=== PATIENT | male | born 1950 | race Caucasian/White ===

== ENCOUNTER → 2017-06-12 | Outpatient (CLI) | payer OTHER ==
[~2017-06-12] MED LIST: AMLODIPINE BESY10 MG PO; DEXILANT60 MG PO; IBUPROFEN 200200 M1 PO
== END ==
LOC: MRI 07:15
DX: M51.37 Other intervertebral disc degeneration, lumbosacral region (principal)

== ENCOUNTER → 2017-06-18 | Outpatient (CLI) | payer OTHER ==
[~2017-06-18] VITALS: Ht 172.7 cm; Wt 64.0 kg
[~2017-06-18] MED LIST changes: +LYRICA 50 MG50 MG PO; +TESSALON PERLE100 MG PO
--- NOTE | ~2017-06-18 | HPC ---
[facility] [address] [place] [address] PAIN MANAGEMENT CONSULTATION Name: ROCKY [facility]ORREZ [id number] Ad[facility]: 06/18/17 Attend Phys: Clyde Reeder DO Discharge: Date of : 48 Report #: [id number] THIS REPORT FOR: //name// CC: Clyde Connelly MD DATE OF SERVICE: 06/18/2017 REFERRING PHYSICIAN: Jayesh Connelly M.D. CHIEF COMPLAINT: Low back pain, left lower extremity pain with paresthesias. HISTORY OF PRESENT ILLNESS: As you know, the patient is a 66-year-old male who reports now pain score of 8/10, states pain is constant and sharp in sensation, exacerbated with activities; improves with repositioning, heat and cold compresses, acetaminophen and ibuprofen. He indicates pain begins in low back, radiates down the left leg into the foot with the second, third, fourth and fifth digits on the foot numbness and tingling as well as the bottom of the foot. He returns to discuss treatment options and to review his recent MRI. He had an MRI obtained on 06/12/2017 per our request. ALLERGIES: No known drug allergies. CURRENT MEDICATIONS: Ibuprofen, Dexilant, amlodipine and Lyrica. SOCIAL HISTORY: The patient smokes 1 pack tobacco per day. He has done so for 50 years. Denies IV or illicit drug use. Admits to 6 alcoholic beverages per day. 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 He is unaccompanied today. IMAGING DATA: MRI lumbar spine obtained on 06/12/2017 shows T12-L1, L1-L2, L2-L3 and L3-L4 unremarkable and L4-L5 minimal posterior disk bulge and mild bilateral facet arthrosis. No significant central canal or neural foraminal stenosis. Tiny annular tear at L5-S1. There is mild diffuse disk bulge, superimposed left paracentral disk protrusion which migrated caudally from the disk space approximately 10 mm. There is effacement of the descending left S1 nerve root, correlating to a left S1 radiculopathy. PHYSICAL EXAMINATION: VITAL SIGNS: Blood pressure 142/75, pulse 74, respiratory rate 14 and unlabored. The patient is 100% on room air. Height 5 feet 8 inches tall, weight 141.2 pounds and BMI calculated 21.5. GENERAL: Well-developed, well-nourished and well-hydrated 66-year-old male. He appears his stated age. He is in no acute distress, awake, alert and oriented x 3. Current pain score is rated at 8/10. HEENT: Normocephalic and atraumatic. Pupils equal, round and reactive to [facility] [address] [place] [address] PAIN MANAGEMENT CONSULTATION Name: ROCKY TORREZ Room #: REG ANANT [facility]ar#: [id number] Admission: 06/18/17 Attend Phys: Clyde Reeder DO Discharge: Date of : 48 Report #: [id number] light. Extraocular muscles are intact. Sclerae nonicteric without injection. NEUROLOGICAL: Cranial nerves 2 through 12 grossly intact. EXTREMITIES: Show no clubbing, no cyanosis and no edema. MUSCULOSKELETAL: Seated straight leg raising is positive left, supine straight leg raising positive left. Afua's test negative. Modified Gaenslen's positive for axial back pain. Gait is antalgic favoring left lower extremity over right. Muscle bulk and tone equal and symmetrical. ASSESSMENT: 1. Symptomatic lumbar radiculopathy. 2. Displacement of lumbar intervertebral disk with radiculopathy. 3. Foraminal stenosis of the lumbar spine. 4. Chronic intractable pain. PLAN: 1. The patient returns today in followup visit where we have reviewed his recent MRI. Unfortunately, the patient does have fairly significant changes at the L5-S1 causing mass effect upon the left S1 nerve root, which does correspond the patient's typical pain distribution. We discussed with the patient the findings on the MRI and how they correlate to his symptoms specifically. After discussion of the MRI, we then began to discuss treatment options that might be useful in treating his symptoms. The patient and I discussed treatment options, which would include physical therapy, stretching exercises, core strengthening. We discussed medication management with neuropathic pain medication such as the Lyrica. We have already initiated the patient on. We also discussed epidural injections under fluoroscopic guidance, spinal cord stimulator therapy and ultimately surgical options. After reviewing the risks and benefits of all proposed treatment options, the patient chose to begin with continuation of medications. 2. The patient will continue Lyrica. He is going to escalate his dose from the 100 mg at night to 50 mg morning, 100 mg at night for the next 7 nights, then increase to 100 mg twice a day. He is going to consider possibility of undergoing an epidural injection. He does wish to discuss this with his primary care physician. 3. The patient and I did discuss the possible necessity of undergoing surgery at this time, the patient indicates he cannot undergo surgery due to having to take care of his as he is the sole provider of care. He will consider his options and determine if surgical direction in which he wishes to head. If this is the case, we will then provide the patient with a referral to neurosurgery. At this point, the patient wishes to remain conservative with treatment. 4. We will see the patient back in followup visit on an as needed basis. He [facility] [address] [place] [address] PAIN MANAGEMENT CONSULTATION Name: ROCKY TORREZ Room #: REG ANANT T[facility]ar#: [id number] Admission: 06/18/17 Attend Phys: Clyde Reeder DO Discharge: Date of : 48 Report #: [id number] has medication available and he is going to discuss his case further with Dr. Connelly. <ELECTRONICALLY SIGNED> By: Clyde Reeder DO 07/03/17 1214 1007 1150 Clyde Reeder DO /nt
[2017-06-18 11:22] VITALS: BP 142/75
== END ==
LOC: PAIN 06:56
DX: M48.061 Spinal stenosis, lumbar region without neurogenic claudication (principal); G89.29 Other chronic pain; M51.16 Intervertebral disc disorders with radiculopathy, lumbar region; Z87.891 Personal history of nicotine dependence

== ENCOUNTER 2017-07-18 16:20 | Emergency (ER) | payer OTHER ==
[~2017-07-18] VITALS: Ht 172.7 cm; Wt 61.2 kg
--- NOTE | ~2017-07-18 | EKG ---
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
[~2017-07-18 16:20] MED LIST changes: -TESSALON PERLE100 MG PO
[2017-07-18 18:56] LABS: ABSOLUTE NEUTROPHILS 7.9 thou/uL (1.4-8.2); BASOPHILS 1.1 % (0.0-2.0); EOSINOPHILS 3.6 % (0.0-3.0); HEMATOCRIT 39.6 % (42.0-52.0); HEMOGLOBIN 14.2 gm/dL (14.0-18.0); LYMPHOCYTES 12.8 % (24.0-44.0); MCH 31.8 pg (26.0-34.0); MCHC 35.8 g/dL (28.0-37.0); MCV 88.7 fL (80.0-100.0); MONOCYTES 10.5 % (1.0-8.0); PLATELET COUNT 430 thou/uL (150-400); RBC 4.46 mil/uL (4.50-6.00); RDW 13.4 % (10.5-14.5)
[2017-07-18 19:04] LABS: ANION GAP 9 mmol/L (7-16); BUN 11 mg/dL (7-18); CALCIUM 8.8 mg/dL (8.5-10.1); CHLORIDE 101 mmol/L (98-107); CO2 26 mmol/L (21-32); CREATININE 1.1 mg/dL (0.7-1.3); GLUCOSE 105 mg/dL (74-106); POTASSIUM 3.7 mmol/L (3.5-5.1); SODIUM 136 mmol/L (136-145)
[2017-07-18 19:12] LABS: ALBUMIN 3.7 g/dL (3.4-5.0); SGOT 28 U/L (15-37); SGPT 38 U/L (30-65); TOTAL BILIRUBIN 0.4 mg/dL (<0.1-1.0); TOTAL PROTEIN 7.5 g/dL (6.4-8.2); TROPONIN-I < 0.04 ng/mL (<0.06)
[2017-07-18] MEDS ORDERED: TESSALON PERLE100 MG PO (19:41)
[2017-07-18 19:59] VITALS: BP 142/76
== END 2017-07-18 20:00 | disposition home or self-care (01) ==
LOC: ER 16:20
PROVIDERS: Physician Assistant
DX: R05 Cough (principal); R60.0 Localized edema; I10 Essential (primary) hypertension; F17.210 Nicotine dependence, cigarettes, uncomplicated; Z90.49 Acquired absence of other specified parts of digestive tract

== ENCOUNTER → 2017-07-23 | Outpatient (CLI) | payer OTHER ==
[~2017-07-23] VITALS: Ht 172.7 cm; Wt 65.0 kg
[~2017-07-23] MED LIST changes: +TESSALON PERLE100 MG PO
--- NOTE | ~2017-07-23 | HPC ---
[facility] [address] [place] [address] PAIN MANAGEMENT CONSULTATION Name: ROCKY TORREZ [id number] Admission: 07/23/17 Attend Phys: Clyde Reeder DO Discharge: Date of : 48 Report #: [id number] THIS REPORT FOR: //name// CC: Clyde Connelly DATE OF SERVICE: 07/23/2017 CHIEF COMPLAINT: Low back pain, left lower extremity pain and paresthesias. HISTORY OF PRESENT ILLNESS: As you know, the patient is a 66-year-old male who returns today in followup visit with reporting pain score of around 0/10. He states pain is constant and sharp when present. He states pain begins in low back, radiates down the leg. He states he is now feeling no sensation in the left lower extremity, "my foot is ." The patient is undergoing surgery with Dr. Gatica on August 15 to address low back issues. He returns today in followup visit to continue Lyrica samples up until the time he undergo surgery with the plan to come off these medications directly after surgery has been completed. He returns today requesting samples of the Lyrica to be provided for the next couple of weeks as he prepares for surgery. ALLERGIES: No known drug allergies. CURRENT MEDICATIONS: Ibuprofen is excellent, amlodipine and Lyrica. SOCIAL HISTORY: The patient continues to smoke 1 pack tobacco per day and he has done so for 50+ years. Denies IV or illicit drug use. Admits to 6 alcoholic beverages per day. 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 IMAGING DATA: No new imaging available. PHYSICAL EXAMINATION: VITAL SIGNS: Blood pressure 139/67, pulse is 70 and respiratory rate 20 and unlabored. The patient is 97% on room air, height 5 feet 8 inches tall, weight 143.2 pounds and BMI calculated 21.8. GENERAL: Well-developed, well-nourished and well-hydrated 66-year-old male, smell strongly of tobacco smoke, placing current pain score currently 0/10. HEENT: Normocephalic and atraumatic. Pupils equal, round and reactive to light. EXTREMITIES: Show no clubbing, no cyanosis and no edema. MUSCULOSKELETAL: Seated straight leg raising positive on the left. Supine straight leg raising positive on the left. Afua's test negative. Modified Gaenslen's positive for axial low back pain. Gait is antalgic favoring left lower extremity over right. [facility] [address] [place] [address] PAIN MANAGEMENT CONSULTATION Name: ROCKY TORREZ Room #: REG [facility]#: [id number] Admission: 07/23/17 Attend Phys: Clyde Reeder DO Discharge: Date of : 48 Report #: [id number] ASSESSMENT: 1. Symptomatic lumbar radiculopathy. 2. Displacement of lumbar intervertebral disk with radiculopathy. 3. Degeneration of lumbar spine. 4. Foraminal stenosis of the lumbar spine. 5. Chronic intractable pain. PLAN: 1. The patient returns today in followup visit for refills of his Lyrica therapy. The patient indicates that he is planning to undergo surgery on 08/15/[address] Gatica. The patient is hopeful this will improve his symptoms. He has requested that we provide Lyrica samples until which time he reaches the surgical time and then can be weaned off this medication post-procedurally. He returns today requesting the refills of samples to be provided today. 2. The patient was provided a sample pack of Lyrica. He is to continue the 50 mg in the morning and 100 mg at night. He was given samples to make the August 15 surgical deadline. 3. We wish to thank the referring physician, Dr. Connelly for the opportunity to see this patient in consultation. He is to follow with Dr. Gatica on until released from his care. He should be off his Lyrica by that time and can return to his PCP for continued therapy. Again, we wish to thank you for the opportunity to see the patient in consultation. <ELECTRONICALLY SIGNED> By: Clyde Reeder DO 08/06/17 0906 [id number] [id number] Clyde Reeder DO /nt
[2017-07-23 10:26] VITALS: BP 139/67
== END ==
LOC: PAIN 06:49
DX: M48.061 Spinal stenosis, lumbar region without neurogenic claudication (principal); M51.16 Intervertebral disc disorders with radiculopathy, lumbar region; M47.896 Other spondylosis, lumbar region; G89.29 Other chronic pain

== ENCOUNTER → 2019-11-05 | Outpatient (CLI) | payer OTHER | LOC: RAD 10:38 | DX: J43.9 Emphysema, unspecified (principal); J98.4 Other disorders of lung ==

== ENCOUNTER → 2019-11-09 | Outpatient (CLI) | payer OTHER | LOC: SJCVC 09:50 → SJCVCIMAG 09:50 | DX: I07.1 Rheumatic tricuspid insufficiency (principal); R07.9 Chest pain, unspecified; R06.09 Other forms of dyspnea; I10 Essential (primary) hypertension; R60.9 Edema, unspecified; F17.210 Nicotine dependence, cigarettes, uncomplicated ==

== ENCOUNTER → 2020-03-02 | Outpatient (CLI) | payer OTHER | LOC: CAT 07:43 | PROVIDERS: ATTEND Pediatrics | DX: J43.1 Panlobular emphysema (principal); I25.10 Atherosclerotic heart disease of native coronary artery without angina pectoris ==

== ENCOUNTER 2020-06-01 14:58 | Emergency (ER) | payer OTHER ==
[~2020-06-01] VITALS: Ht 172.7 cm; Wt 56.7 kg
[2020-06-01 15:19] VITALS: BP 146/75
== END 2020-06-01 19:56 | disposition home or self-care (01) ==
LOC: ER 14:58
DX: M54.16 Radiculopathy, lumbar region (principal); M54.2 Cervicalgia; M79.605 Pain in left leg; I10 Essential (primary) hypertension; F17.210 Nicotine dependence, cigarettes, uncomplicated; Z90.49 Acquired absence of other specified parts of digestive tract; Z79.899 Other long term (current) drug therapy; V89.2XXA Person injured in unspecified motor-vehicle accident, traffic, initial encounter; Y93.I9 Activity, other involving external motion; Y92.488 Other paved roadways as the place of occurrence of the external cause; Y99.8 Other external cause status

== ENCOUNTER → 2020-08-15 | Outpatient (CLI) | payer OTHER ==
[~2020-08-15] MED LIST changes: +ANORO ELLIPTA1 EACH INH; +COLACE100 MG PO; +IPRAT-ALBUT 0.5-3 ML INH; +MIRALAX17 GM PO; +NEURONTIN 300M300 M2 PO; +OXYGEN MISCELL; +PULMICORT0.5 MG/22 INH; +TRAZODONE HCL50 MG PO; +VENTOLIN HFA 1818 GM INH
[2020-08-15 11:25] LABS: HEMATOCRIT 40.7 % (42.0-52.0); HEMOGLOBIN 13.7 gm/dL (14.0-18.0); MCH 29.8 pg (26.0-34.0); MCHC 33.8 g/dL (28.0-37.0); MCV 88.3 fL (80.0-100.0); RBC 4.6 mil/uL (4.50-6.00); RDW 15.3 % (10.5-14.5); WBC 9.9 thou/uL (4.0-11.0)
[2020-08-15 11:28] LABS: URINE BILIRUBIN NEGATIVE (Negative); URINE BLOOD NEGATIVE (Negative); URINE CLARITY CLEAR; URINE COLOR YELLOW; URINE GLUCOSE-RANDOM* NEGATIVE (Negative); URINE KETONES NEGATIVE (Negative); URINE LEUKOCYTES-REFLEX NEGATIVE (Negative); URINE NITRITE-REFLEX NEGATIVE (Negative); URINE PROTEIN (DIPSTICK) NEGATIVE (Negative); URINE SPECIFIC GRAVITY 1.015 (1.005-1.035); URINE UROBILINOGEN 0.2 E.U./dl (0.2-1.0)
[2020-08-15 11:39] LABS: ALBUMIN 3.8 g/dL (3.4-5.0); APTT 25.9 Seconds (24.5-32.8); CALCIUM 8.6 mg/dL (8.5-10.1); CREATININE 1.1 mg/dL (0.7-1.3); POTASSIUM 3.8 mmol/L (3.5-5.1); PROTIME 10.2 Seconds (9.3-11.4); TOTAL BILIRUBIN 0.3 mg/dL (0.2-1.0); TOTAL PROTEIN 6.6 g/dL (6.4-8.2)
== END ==
LOC: LAB 09:00
PROVIDERS: Specialist; ATTEND Family Medicine
DX: Z01.818 Encounter for other preprocedural examination (principal)

== ENCOUNTER → 2020-08-17 | Outpatient (CLI) | payer OTHER ==
[~2020-08-17] MED LIST changes: -COLACE100 MG PO; -IPRAT-ALBUT 0.5-3 ML INH; -MIRALAX17 GM PO; -OXYGEN MISCELL; -PULMICORT0.5 MG/22 INH
== END ==
LOC: LAB 08:01
PROVIDERS: ATTEND Specialist
DX: Z01.812 Encounter for preprocedural laboratory examination (principal); Z20.822 Contact with and (suspected) exposure to COVID-19

== ENCOUNTER 2020-08-22 06:11 | Observation (INO) | payer OTHER ==
[2020-08-15 11:25] LABS: HEMATOCRIT 40.7 % (42.0-52.0); HEMOGLOBIN 13.7 gm/dL (14.0-18.0); MCH 29.8 pg (26.0-34.0); MCHC 33.8 g/dL (28.0-37.0); MCV 88.3 fL (80.0-100.0); RBC 4.6 mil/uL (4.50-6.00); RDW 15.3 % (10.5-14.5); WBC 9.9 thou/uL (4.0-11.0)
[2020-08-15 11:28] LABS: URINE BILIRUBIN NEGATIVE (Negative); URINE BLOOD NEGATIVE (Negative); URINE CLARITY CLEAR; URINE COLOR YELLOW; URINE GLUCOSE-RANDOM* NEGATIVE (Negative); URINE KETONES NEGATIVE (Negative); URINE LEUKOCYTES-REFLEX NEGATIVE (Negative); URINE NITRITE-REFLEX NEGATIVE (Negative); URINE PROTEIN (DIPSTICK) NEGATIVE (Negative); URINE SPECIFIC GRAVITY 1.015 (1.005-1.035); URINE UROBILINOGEN 0.2 E.U./dl (0.2-1.0)
[2020-08-15 11:39] LABS: ALBUMIN 3.8 g/dL (3.4-5.0); APTT 25.9 Seconds (24.5-32.8); CALCIUM 8.6 mg/dL (8.5-10.1); CREATININE 1.1 mg/dL (0.7-1.3); POTASSIUM 3.8 mmol/L (3.5-5.1); PROTIME 10.2 Seconds (9.3-11.4); TOTAL BILIRUBIN 0.3 mg/dL (0.2-1.0); TOTAL PROTEIN 6.6 g/dL (6.4-8.2)
[~2020-08-22] VITALS: Ht 172.7 cm; Wt 58.5 kg
[2020-08-22 07:48] VITALS: BP 147/70
[2020-08-22 11:00] VITALS: BP 110/81
--- NOTE | 2020-08-22 11:36 | NUR ---
ASSUMED CARE AT 1100. PT IS A&O X4. IV IS INTACT AND SHOWS NO SIGNS OF REDNESS OR SWELLING. PT OXYGEN IS 94 WITH 2L OF O2. ATTEMPTED TO TRY RA;HOWEVER, PT IS ON 88%. 2 L OF OYXGEN IS BACK ON PT. WILL CONTINUE TO MONITOR PT. PT DENIES PAIN AND WILL LET ME KNOW WHEN HE NEEDS PAIN MEDICATIONS. VSS.
[2020-08-22] MEDS ORDERED: MIRALAX17 GM PO (13:36)
[2020-08-22] MEDS ORDERED: COLACE100 MG PO (13:36)
[2020-08-22] MEDS ORDERED: PULMICORT0.5 MG/22 INH (14:18)
[2020-08-22] MEDS ORDERED: IPRAT-ALBUT 0.5-3 ML INH (14:18)
[2020-08-22] MEDS ORDERED: OXYGEN MISCELL (16:12)
[2020-08-22 16:19] VITALS: BP 118/71
--- NOTE | 2020-08-22 16:34 | NUR ---
WILLIAM FAXED ORDERS AND SCRIPT TO [facility] [phone]. JIMENA STATED HE WILL DELIVERED TANK TO HOSPITAL AROUND 1800. PT RN, ERASMO NOTIFIED. PT NOTIFIED.
[2020-08-22 17:04] VITALS: BP 118/71
--- NOTE | 2020-08-23 06:51 | NUR ---
RECEIVED OT ORDER FOR EVALUATION AND TREAT. PATIENT DISCHARGED THE HOSPITAL PRIOR TO OT INITIATING EVALUATION.
--- NOTE | 2020-08-23 08:28 | NUR ---
PT CONSULT RECEIVED. Pt DISCHARGED FROM HOSPITAL BEFORE PT EVALUATION COULD BE INITIATED.
== END 2020-08-22 18:30 | disposition home or self-care (01) ==
LOC: TBA 06:11 → OR 06:11 → 4S 11:23 → OR 11:23 → 4S 18:30 → OR 08-29 10:35
PROVIDERS: ADMIT Specialist; ATTEND Specialist
DX: M51.27 Other intervertebral disc displacement, lumbosacral region (principal); M19.90 Unspecified osteoarthritis, unspecified site; I10 Essential (primary) hypertension; J44.9 Chronic obstructive pulmonary disease, unspecified; F17.210 Nicotine dependence, cigarettes, uncomplicated; Z79.899 Other long term (current) drug therapy
CPT/HCPCS: 50010; 50101; 50402; 51751; 56527; 56528; 56532; 57103; 62110; 62900; 70005

== ENCOUNTER → 2021-02-17 | Outpatient (CLI) | payer OTHER ==
[~2021-02-17] MED LIST changes: +COLACE100 MG PO; +IPRAT-ALBUT 0.5-3 ML INH; +MIRALAX17 GM PO; +OXYGEN MISCELL; +PULMICORT0.5 MG/22 INH
== END ==
LOC: CAT 10:50
PROVIDERS: ATTEND Pediatrics
DX: J43.8 Other emphysema (principal); I70.0 Atherosclerosis of aorta; I25.10 Atherosclerotic heart disease of native coronary artery without angina pectoris; M25.78 Osteophyte, vertebrae